=== PATIENT | male | born 1955 | race Caucasian/White ===

== ENCOUNTER 2018-05-25 11:40 | Inpatient (IN) | payer OTHER ==
--- NOTE | 2018-05-25 12:30 | ER ---
Nurse's Notes [facility] Name: Jeromy Brooks Age: 62 yrs Sex: Male : 1955 Arrival Date: 05/25/2018 Time: 11:45 Bed 24 Private MD: Mac Gross Diagnosis: Acute embolism and thrombosis of deep veins of lower extremity;Pulmonary embolism Presentation: 05/25 11:54 Presenting complaint: Patient states: Sent by Dr Muñiz for blood clot to right lower aj leg. Transition of care: patient was not received from another setting of care. Onset of symptoms was February 2018. Risk Assessment: Do you want to hurt yourself or someone else? Patient reports no desire to harm self or others. Initial Sepsis Screen: Does the patient meet any 2 criteria? No. Patient's initial sepsis screen is negative. Does the patient have a suspected source of infection? No. Patient's initial sepsis screen is negative. Care prior to arrival: None. 11:54 Method Of Arrival: Ambulatory aj 11:54 Acuity: SEUN 3 aj Triage Assessment: 11:56 General: Appears in no apparent distress. comfortable, Behavior is calm, cooperative, aj appropriate for age. Pain: Complains of pain in right zuniga and anterior aspect of right ankle. Neuro: Level of Consciousness is awake, alert, obeys commands, Oriented to person, place, time, situation, Appropriate for age. Respiratory: Airway is patent Respiratory effort is even, unlabored, Respiratory pattern is regular, symmetrical. Derm: Skin is intact, is healthy with good turgor, Skin is pink, warm \T\ dry. normal. Musculoskeletal: Swelling present in right calf, right Achilles, right zuniga and anterior aspect of right ankle Reports pain in right calf, right Achilles, right zuniga and anterior aspect of right ankle. Historical: - Allergies: 11:56 Sulfa (Sulfonamide Antibiotics); aj 11:56 PENICILLINS; aj 12:01 Albutein 5 %; hb - Home Meds: 12:01 ProAir HFA 90 mcg/actuation inhalation HFAA 2 puffs as needed [Active]; Zyrtec 10 mg hb oral cap [Active]; Zestoretic 20-25 mg oral tab 1 tab once daily for Hypertension [Active]; - PMHx: 12:01 Hypertension; Asthma; Anxiety; CAD; Arthritis; hb - Immunization history:: Adult Immunizations up to date. - Social history:: Smoking status: Patient/guardian denies using tobacco. - Ebola Screening: : Patient negative for fever greater than or equal to 101.5 degrees Fahrenheit, and additional compatible Ebola Virus Disease symptoms Patient denies exposure to infectious person Patient denies travel to an Ebola-affected area in the 21 days before illness onset No symptoms or risks identified at this time. - Family history:: not pertinent. Screenin:15 Abuse screen: Denies threats or abuse. Denies injuries from another. Nutritional hb screening: No deficits noted. Tuberculosis screening: No symptoms or risk factors identified. Fall Risk None identified. Assessment: 12:10 General: Appears in no apparent distress. Behavior is calm, cooperative. Pain: Denies hb pain. Neuro: Level of Consciousness is awake, alert, obeys commands, Oriented to person, place, time, situation. Cardiovascular: Capillary refill < 3 seconds Patient's skin is warm and dry. Respiratory: Airway is patent Trachea midline Respiratory effort is even, unlabored, Respiratory pattern is regular, symmetrical, Breath sounds are clear bilaterally. GI: No signs and/or symptoms were reported involving the gastrointestinal system. : No signs and/or symptoms were reported regarding the genitourinary system. EENT: No signs and/or symptoms were reported regarding the EENT system. Derm: No signs and/or symptoms reported regarding the dermatologic system. Skin is intact, is healthy with good turgor. Musculoskeletal: mild selling and redness noted to RLE. 13:00 Reassessment: Patient appears in no apparent distress at this time. No changes from hb previously documented assessment. Patient and/or family updated on plan of care and expected duration. Pain level reassessed. Patient is alert, oriented x 3, equal unlabored respirations, skin warm/dry/pink. 14:00 Reassessment: Patient appears in no apparent distress at this time. No changes from hb previously documented assessment. Patient and/or family updated on plan of care and expected duration. Pain level reassessed. Patient is alert, oriented x 3, equal unlabored respirations, skin warm/dry/pink. 14:50 Reassessment: US tech at bedside for ECHO. hb 14:54 Reassessment: Patient appears in no apparent distress at this time. No changes from hb previously documented assessment. Patient and/or family updated on plan of care and expected duration. Pain level reassessed. Patient is alert, oriented x 3, equal unlabored respirations, skin warm/dry/pink. 15:46 Reassessment: Attempted to call report to floor, receiving nurse unavailable at this hb time. 16:00 Reassessment: Patient appears in no apparent distress at this time. Patient and/or hb family updated on plan of care and expected duration. Pain level reassessed. Patient is alert, oriented x 3, equal unlabored respirations, skin warm/dry/pink. 16:15 Reassessment: Attempted to call report to floor, receiving nurse is not available. CN hb notified. Vital Signs: 11:56 BP 138 / 101; Pulse 77; Resp 16; Temp 98.3; Pulse Ox 98% on R/A; Weight 78.02 kg; aj Height 5 ft. 5 in. (165.10 cm); 12:45 BP 134 / 89; Pulse 66; Resp 16; Pulse Ox 100% on R/A; Pain 0/10; hb 14:00 BP 138 / 88; Pulse 63; Resp 15; Pulse Ox 100% on R/A; Pain 0/10; hb 14:54 BP 133 / 77; Pulse 69; Resp 15; Pulse Ox 100% on R/A; Pain 0/10; hb 16:00 BP 134 / 92; Pulse 67; Resp 15; Temp 98.3; Pulse Ox 100% on R/A; Pain 0/10; hb 16:50 BP 131 / 94; Pulse 68; Resp 15; Pulse Ox 100% on R/A; Pain 8/10; hb 11:56 Body Mass Index 28.62 (78.02 kg, 165.10 cm) ED Course: 11:45 Patient arrived in ED. mr 11:46 Mac Gross DO is Private Physician. mr 11:53 Snehal Tucker, RN is Primary Nurse. hb 11:55 Triage completed. aj 11:56 Arm band placed on left wrist. Patient placed in an exam room. aj 11:58 Myles Burton MD is Attending Physician. nicole 12:10 Patient has correct armband on for positive identification. Placed in gown. Bed in low hb position. Call light in reach. Side rails up X 1. 12:29 Shun Short MD is Hospitalizing Provider. nicole 12:35 X-ray completed. Portable x-ray completed in exam room. Patient tolerated procedure jb2 well. 12:38 XRAY Chest (1 view) In Process Unspecified. EDMS 12:39 Patient taken to ultrasound. aa4 12:48 US Extremity Venous Unilateral Ltd In Process Unspecified. EDMS 12:49 Patient moved back from ultrasound. hr 13:01 EKG done, by lawn care technician. reviewed by Myles Burton MD. at1 13:25 CT completed. Patient tolerated procedure well. Patient moved to CT via stretcher. Patient moved back from CT. 13:29 Hospitalizing Provider role handed off by Shun Short MD bd 13:29 Bessy Mcdermott MD is Hospitalizing Provider. bd 16:45 No provider procedures requiring assistance completed. Patient admitted, IV remains in hb place. Administered Medications: 12:50 Drug: NS 0.9% 1000 ml Route: IV; Rate: 125 ml/hr; Site: left antecubital; hb 12:50 Drug: Lovenox 1 mg/kg Route: Sub-Q; Site: abdomen; hb 13:29 Follow up: Response: No adverse reaction hb 12:50 Drug: Pepcid 20 mg Route: IVP; Site: left antecubital; hb 13:30 Follow up: Response: No adverse reaction hb Outcome: 12:30 Decision to Hospitalize by Provider. nicole 16:15 Condition: stable hb 16:15 Instructed on the need for admit, Demonstrated understanding of instructions. 16:48 Discharge instructions given to patient. hb 16:49 Admitted to Tele accompanied by nurse, via stretcher, room 431, with chart, Report hb called to JAYRO Pelayo RN 17:07 Patient left the ED. hb Signatures: Dispatcher [employer] EDMS Gela Hilliard Amanda, RN RN Myles Lee MD MD cha Rivera, Maria mr Murillo Black jb2 Leyla Hilton hr Shaniqua Amado aa4 Shaniqua murillo, microphone operator EKG Tat1 Jocelin Salazar Heather, BLAYNE RN kiersten Corrections: (The following items were deleted from the chart) 12:01 11:56 Allergies: Albuterol; donald burch 05/26 07:22 05/25 16:15 Admitted to Tele accompanied by nurse, via stretcher, room 431, with chart, hb Report called to JAYRO Pelayo, BLAYNE hb
--- NOTE | 2018-05-25 12:30 | EDPHYS ---
Physician Documentation [facility] Name: Jeromy Brooks Age: 62 yrs Sex: Male : 1955 Arrival Date: 05/25/2018 Time: 11:45 Bed 24 Private MD: Mac Gross ED Physician Myles Burton HPI: 05/25 12:24 This 62 yrs old Male presents to ER via Ambulatory with complaints of Blood nicole Clot. 12:24 The patient presents with decreased range of motion, pain, swelling, tenderness. The nicole complaints affect the lateral aspect of right calf, right calf, medial aspect of right calf and right zuniga. Context: The problem was sustained. Onset: The symptoms/episode began/occurred 3 day(s) ago. Modifying factors: The symptoms are alleviated by nothing. the symptoms are aggravated by movement. Associated signs and symptoms: The patient has no apparent associated signs or symptoms. Treatment prior to arrival includes: no previous treatment. Severity of symptoms: At their worst the symptoms were moderate, in the emergency department the symptoms are unchanged. Historical: - Allergies: 11:56 Sulfa (Sulfonamide Antibiotics); aj 11:56 PENICILLINS; aj 12:01 Albutein 5 %; hb - Home Meds: 12:01 ProAir HFA 90 mcg/actuation inhalation HFAA 2 puffs as needed [Active]; Zyrtec 10 mg hb oral cap [Active]; Zestoretic 20-25 mg oral tab 1 tab once daily for Hypertension [Active]; - PMHx: 12:01 Hypertension; Asthma; Anxiety; CAD; Arthritis; hb - Immunization history:: Adult Immunizations up to date. - Social history:: Smoking status: Patient/guardian denies using tobacco. - Ebola Screening: : Patient negative for fever greater than or equal to 101.5 degrees Fahrenheit, and additional compatible Ebola Virus Disease symptoms Patient denies exposure to infectious person Patient denies travel to an Ebola-affected area in the 21 days before illness onset No symptoms or risks identified at this time. - Family history:: not pertinent. ROS: 12:24 Constitutional: Negative for fever, chills, and weight loss, Eyes: Negative for injury, nicole pain, redness, and discharge, ENT: Negative for injury, pain, and discharge, Neck: Negative for injury, pain, and swelling, Cardiovascular: Negative for chest pain, palpitations, and edema, Respiratory: Negative for shortness of breath, cough, wheezing, and pleuritic chest pain, Abdomen/GI: Negative for abdominal pain, nausea, vomiting, diarrhea, and constipation, Back: Negative for injury and pain, : Negative for injury, bleeding, discharge, and swelling, Skin: Negative for injury, rash, and discoloration, Neuro: Negative for headache, weakness, numbness, tingling, and seizure, Psych: Negative for depression, anxiety, suicide ideation, homicidal ideation, and hallucinations, Allergy/Immunology: Negative for hives, rash, and allergies, Endocrine: Negative for neck swelling, polydipsia, polyuria, polyphagia, and marked weight changes, Hematologic/Lymphatic: Negative for swollen nodes, abnormal bleeding, and unusual bruising. 12:24 MS/extremity: Positive for decreased range of motion, pain, tenderness. Exam: 12:24 Constitutional: This is a well developed, well nourished patient who is awake, alert, nicole and in no acute distress. Head/Face: Normocephalic, atraumatic. Eyes: Pupils equal round and reactive to light, extra-ocular motions intact. Lids and lashes normal. Conjunctiva and sclera are non-icteric and not injected. Cornea within normal limits. Periorbital areas with no swelling, redness, or edema. ENT: Nares patent. No nasal discharge, no septal abnormalities noted. Tympanic membranes are normal and external auditory canals are clear. Oropharynx with no redness, swelling, or masses, exudates, or evidence of obstruction, uvula midline. Mucous membranes moist. Neck: Trachea midline, no thyromegaly or masses palpated, and no cervical lymphadenopathy. Supple, full range of motion without nuchal rigidity, or vertebral point tenderness. No Meningismus. Chest/axilla: Normal chest wall appearance and motion. Nontender with no deformity. No lesions are appreciated. Cardiovascular: Regular rate and rhythm with a normal S1 and S2. No gallops, murmurs, or rubs. Normal PMI, no JVD. No pulse deficits. Respiratory: Lungs have equal breath sounds bilaterally, clear to auscultation and percussion. No rales, rhonchi or wheezes noted. No increased work of breathing, no retractions or nasal flaring. Back: No spinal tenderness. No costovertebral tenderness. Full range of motion. Male : Normal genitalia with no discharge or lesions. Skin: Warm, dry with normal turgor. Normal color with no rashes, no lesions, and no evidence of cellulitis. MS/ Extremity: Pulses equal, no cyanosis. Neurovascular intact. Full, normal range of motion. Neuro: Awake and alert, GCS 15, oriented to person, place, time, and situation. Cranial nerves II-XII grossly intact. Motor strength 5/5 in all extremities. Sensory grossly intact. Cerebellar exam normal. Normal gait. Psych: Awake, alert, with orientation to person, place and time. Behavior, mood, and affect are within normal limits. 12:24 Abdomen/GI: Inspection: Bowel sounds: normal, Palpation: nontender, Liver: no appreciated palpable abnormalities, Hernia: not appreciated. Vital Signs: 11:56 BP 138 / 101; Pulse 77; Resp 16; Temp 98.3; Pulse Ox 98% on R/A; Weight 78.02 kg; aj Height 5 ft. 5 in. (165.10 cm); 12:45 BP 134 / 89; Pulse 66; Resp 16; Pulse Ox 100% on R/A; Pain 0/10; hb 14:00 BP 138 / 88; Pulse 63; Resp 15; Pulse Ox 100% on R/A; Pain 0/10; hb 14:54 BP 133 / 77; Pulse 69; Resp 15; Pulse Ox 100% on R/A; Pain 0/10; hb 16:00 BP 134 / 92; Pulse 67; Resp 15; Temp 98.3; Pulse Ox 100% on R/A; Pain 0/10; hb 16:50 BP 131 / 94; Pulse 68; Resp 15; Pulse Ox 100% on R/A; Pain 8/10; hb 11:56 Body Mass Index 28.62 (78.02 kg, 165.10 cm) MDM: 11:58 Patient medically screened. [facility] 12:27 Data reviewed: vital signs, nurses notes, lab test result(s), EKG, radiologic studies, [facility] CT scan, doppler, plain films. 05/25 12:24 Order name: Basic Metabolic Panel; Complete Time: 13:15 [facility] 05/25 12:24 Order name: CBC with Diff; Complete Time: 13:15 [facility] 05/25 12:24 Order name: Ckmb; Complete Time: 13:15 [facility] 05/25 12:24 Order name: CPK; Complete Time: 13:15 [facility] 05/25 12:24 Order name: LFT's; Complete Time: 13:15 [facility] 05/25 12:24 Order name: Magnesium; Complete Time: 13:15 [facility] 05/25 12:24 Order name: NT PRO-BNP; Complete Time: 13:15 [facility] 05/25 12:24 Order name: PT-INR; Complete Time: 13:15 [facility] 05/25 12:24 Order name: Ptt, Activated; Complete Time: 13:15 [facility] 05/25 12:24 Order name: Troponin (emerg Dept Use Only); Complete Time: 13:15 [facility] 05/25 12:24 Order name: XRAY Chest (1 view); Complete Time: 13:15 [facility] 05/25 12:24 Order name: US Extremity Venous Unilateral Ltd [facility] 05/25 13:10 Order name: Urine Dipstick--Ancillary (enter results) 05/25 13:13 Order name: Urine Dipstick-Ancillary; Complete Time: 13:15 [facility] 05/25 12:24 Order name: EKG; Complete Time: 12:24 [facility] 05/25 12:24 Order name: Cardiac monitoring; Complete Time: 12:27 [facility] 05/25 12:24 Order name: EKG - Nurse/Tech; Complete Time: 12: [facility] 05/25 12:24 Order name: IV Saline Lock; Complete Time: 12: [facility] 05/25 12:24 Order name: Labs collected and sent; Complete Time: 12:27 [facility] 05/25 12:24 Order name: O2 Per Protocol; Complete Time: 12:27 [facility] 05/25 12:24 Order name: O2 Sat Monitoring; Complete Time: 12: [facility] 05/25 12:24 Order name: Urine Dipstick-Ancillary (obtain specimen); Complete Time: 13:30 [facility] 05/25 12:24 Order name: CT Chest For PE Angio [facility] 05/25 14:00 Order name: CT; Complete Time: 14:10 [facility] 05/25 14:12 Order name: Echo w/ Doppler nicole Administered Medications: 12:50 Drug: NS 0.9% 1000 ml Route: IV; Rate: 125 ml/hr; Site: left antecubital; hb 12:50 Drug: Lovenox 1 mg/kg Route: Sub-Q; Site: abdomen; hb 13:29 Follow up: Response: No adverse reaction hb 12:50 Drug: Pepcid 20 mg Route: IVP; Site: left antecubital; hb 13:30 Follow up: Response: No adverse reaction hb Disposition: 05/25/18 12:30 Hospitalization ordered by Bessy Mcdermott for Inpatient Admission. Preliminary diagnosis are Acute embolism and thrombosis of deep veins of lower extremity, Pulmonary embolism. - Bed requested for Telemetry/MedSurg (Inpatient). - Status is Inpatient Admission. hb - Condition is Stable. - Problem is new. - Symptoms are unchanged. UTI on Admission? No Signatures: Dispatcher [employer] EDMS Gela Hilliard Amanda, RN RN aj Anderson, Corey, MD MD cha Baxter, Heather, RN RN hb Corrections: (The following items were deleted from the chart) 12:01 11:56 Allergies: Albuterol; aj hb 13:31 12:30 Hospitalization Ordered by Shun Short MD for Observation. Preliminary diagnosis bd is Acute embolism and thrombosis of deep veins of lower extremity. Bed requested for Telemetry/MedSurg (observation). Status is Observation. Condition is Stable. Problem is new. Symptoms are unchanged. UTI on Admission? No. nicole 14:11 13:31 05/25/2018 12:30 Hospitalization Ordered by Bessy Mcdermott MD for Observation. nicole Preliminary diagnosis is Acute embolism and thrombosis of deep veins of lower extremity. Bed requested for Telemetry/MedSurg (observation). Status is Observation. Condition is Stable. Problem is new. Symptoms are unchanged. UTI on Admission? No. bd 14:11 14:11 05/25/2018 12:30 Hospitalization Ordered by Bessy Mcdermott MD for Inpatient nicole Admission. Preliminary diagnosis is Acute embolism and thrombosis of deep veins of lower extremity. Bed requested for Telemetry/MedSurg (Inpatient). Status is Inpatient Admission. Condition is Stable. Problem is new. Symptoms are unchanged. UTI on Admission? No. nicole 15:29 14:11 05/25/2018 12:30 Hospitalization Ordered by Bessy Mcdermott MD for Inpatient bd Admission. Preliminary diagnosis is Acute embolism and thrombosis of deep veins of lower extremity; Pulmonary embolism. Bed requested for Telemetry/MedSurg (Inpatient). Status is Inpatient Admission. Condition is Stable. Problem is new. Symptoms are unchanged. UTI on Admission? No. nicole 17:07 15:29 05/25/2018 12:30 Hospitalization Ordered by Bessy Mcdermott MD for Inpatient hb Admission. Preliminary diagnosis is Acute embolism and thrombosis of deep veins of lower extremity; Pulmonary embolism. Bed requested for Telemetry/MedSurg (Inpatient). Status is Inpatient Admission. Condition is Stable. Problem is new. Symptoms are unchanged. UTI on Admission? No. bd
[2018-05-25] MEDS ORDERED: FAMOTIDINE 20 MG/2 ML VIAL IV ONE (12:35)
[2018-05-25] MEDS ORDERED: NA CHLORIDE 0.9% 1,000 ML ONE (12:35)
[2018-05-25] MEDS ORDERED: ENOXAPARIN 80 MG/0.8 ML SQ ONE (12:35)
[2018-05-25 12:39] LABS: Absolute Lymphocytes (CBC) 1.7 K/uL (0.7-4.9); Absolute Monocytes 0.9 K/uL (0.1-1.3); Absolute Neutrophil 4.9 K/uL (1.8-8.0); Basophils % 0.8 % (0-1.3); Eosinophils % 7.7 % (0-4.4); Hematocrit 39.4 % (39.6-49.0); Lymphocytes % 20.8 % (15.3-44.8); MCH 32.3 pg (27.0-35.0); MCV 92.1 fL (80-100); MPV 9.2 fL (7.6-11.3); Monocytes % 10.9 % (3.3-12.3); RBC Red Blood Cell Count 4.27 M/uL (4.33-5.43)
[2018-05-25 12:43] LABS: Protime INR 1.08
--- NOTE | 2018-05-25 12:51 | RAD REPORT ---
EXAM DESCRIPTION: RAD - Chest Single View - 05/25/2018 12:37 pm CLINICAL HISTORY: COUGH Chest pain. COMPARISON: No comparisons FINDINGS: Portable technique limits examination quality. The lungs are grossly clear. The heart is normal in size. No displaced fractures.Small to moderate hi atal hernia. IMPRESSION: No acute intrathoracic process suspected.
[2018-05-25 13:12] LABS: ALT/SGPT 28 U/L (12-78); AST/SGOT 17 U/L (15-37); Albumin 3.2 g/dL (3.4-5.0); Alkaline Phosphatase 68 U/L (45-117); BUN Blood Urea Nitrogen 13 mg/dL (7-18); Bicarbonate 31 mmol/L (21-32); Bilirubin Direct 0.1 mg/dL (0-0.2); Bilirubin Total 0.4 mg/dL (0.2-1.0); CKMB Creatine Kinase MB < 1.0 ng/mL (0.3-3.6); Creatine Phosphokinase 65 U/L (39-308); Glucose Level 81 mg/dL (74-106); Magnesium 2.1 mg/dL (1.8-2.4); NT PRO-BNP 50 pg/mL (<125); Potassium 3.5 mmol/L (3.5-5.1); Protein, Total 6.6 g/dL (6.4-8.2); Sodium Level 142 mmol/L (136-145)
[2018-05-25 13:13] LABS: Urine Blood NEGATIVE (NEG); Urine Glucose NEGATIVE (NEG); Urine Protein NEGATIVE (NEG); Urine Specific Gravity 1.015 (1.005-1.030)
--- NOTE | 2018-05-25 13:15 | RAD REPORT ---
EXAM DESCRIPTION: VAS - Extremity Venous Uni Ltd - 05/25/2018 12:48 pm COMPARISON: None. TECHNIQUE: Real-time sonographic evaluation of the right lower extremity deep venous system was perf ormed. FINDINGS: Normal compressibility, flow augmentation, phasic flow and spontaneous flow are identified in the right lower extremity common femoral, superficial femoral, popliteal and posterior tibial vei ns. No intraluminal filling defects seen. IMPRESSION: No DVT in the right lower extremity.
--- NOTE | 2018-05-25 13:59 | RAD REPORT ---
EXAM DESCRIPTION: CT - Chest For Pe Angio - 05/25/2018 1:38 pm CLINICAL HISTORY: DVT, possible pulmonary embolism, chest pain COMPARISON: None. TECHNIQUE: Dynamically enhanced 3 mm thick images of the chest were obtained during administration o f approximately 150mL Isovue 370 IV contrast. Coronal and oblique reconstruction images were generate d and reviewed. Exam utilizes a protocol to evaluate the pulmonary arterial tree. All CT scans are performed using dose optimization technique as appropriate and may include automated exposure control or mA/KV adjustment according to patient size. FINDINGS: Pulmonary emboli present in segmental and subsegmental branches of the right lower lobe. T here is questionable right upper lobe segmental branch embolus. No emboli in the lobar or main right pulmonary artery. No left-sided pulmonary embolism. The aorta as imaged shows no acute or suspicious finding. No pericardial thickening or effusion. No infiltrate or mass in the lung parenchyma. No pleural effusion or pleural thickening. No mediastinal or hilar suspicious masses. No chest wall masses or abnormal axillary lymphadenopathy. Patient has a large hiatal hernia with approximately 40% of the stomach intrathoracic. IMPRESSION: Right lower lobe segmental and subsegmental branch pulmonary emboli. There are questiona ble segmental branch emboli in the right upper lobe. Large hiatal hernia. No other significant or suspicious findings.
--- NOTE | 2018-05-25 14:45 | EKG ---
Test Date: 2018-05-25 Test Time: 12:57:56 [employer] Chief: GRISELDA MEASUREMENT RESULTS: Intervals: Rate: 65 MN: 158 QRSD: 98 QT: 404 QTc: 420 [place]: P: 62 MN: 158 QRS: 14 T: 34 INTERPRETIVE STATEMENTS: Normal sinus rhythm Normal ECG Compared to ECG 08/31/1998 08:54:00 Sinus tachycardia no longer present Electronically Signed On 05-25-18 14:44:55 CDT by Viet Burrell
--- NOTE | 2018-05-25 17:04 | ECHO ---
HEIGHT: ft in WEIGHT: lb oz DATE OF STUDY: 05/25/[address]: Myles Burton MD 2-DIMENSIONAL: YES M.MODE: YES DOPPLER: YES COLOR FLOW: YES TDS: PORTABLE: DEFINITY: BUBBLE STUDY: DIAGNOSIS: PULMONARY EMBOLISM/ DEEP VEIN THOMBOSIS CARDIAC HISTORY: CATHERIZATION: YES SURGERY: NO PROSTHETIC VALVE: NO PACEMAKER: NO MEASUREMENTS (cm) DIASTOLIC (NORMALS) SYSTOLIC (NORMALS) IVSd 1.0 (0.6-1.2) LA Diam [*] (1.9-4.0) LVEF 68% LVIDd 4.5 (3.5-5.7) LVIDs 2.8 (2.0-3.5) %FS 37% LVPWd 1.1 (0.6-1.2) Ao Diam 2.6 (2.0-3.7) 2 DIMENSIONAL ASSESSMENT: RIGHT ATRIUM: NORMAL LEFT ATRIUM: NORMAL RIGHT VENTRICLE: NORMAL LEFT VENTRICLE: NORMAL TRICUSPID VALVE: NORMAL MITRAL VALVE: NORMAL PULMONIC VALVE: NORMAL AORTIC VALVE: NORMAL PERICARDIAL EFFUSION: NONE AORTIC ROOT: NORMAL LEFT VENTRICULAR WALL MOTION: DOPPLER/COLOR FLOW: PHYSIOLOGIC TRICUSPID REGURGITATION. NORMAL RIGHT VENTRICULAR SYSTOLIC PRESSURE. COMMENTS: NORMAL TWO DIMENSIONAL ECHOCARDIOGRAM WITH DOPPLER. TECHNOLOGIST: MUSA MARCANO
--- NOTE | 2018-05-25 17:44 | P.HP ---
Certification for Inpatient Patient admitted to: Inpatient With expected LOS: >2 Midnights Patient will require the following post-hospital care: None Practitioner: I am a practitioner with admitting privileges, knowledge of patient current condition, hospital course, and medical plan of care. Services: Services provided to patient in accordance with Admission requirements found in Title 42 Section 412.3 of the Code of Federal Regulations Patient History Date of Service: 05/25/18 Primary Care Provider: Dr Gross Reason for admission: DVT History of Present Illness: 62-year-old male with significant past medical history of hypertension, anxiety , CAD with angioplasty, who presented to the ED complaining of having some right -sided lower extremity swelling tenderness and pain. Patient actually went to the primary care doctor who sent him over to the ER to get it checked out. 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 Patient denies having any shortness of breath fever chills nausea vomiting or any other associated symptoms at this time. In the ER patient was found to have extensive right-sided lower extremity DVT and CT was positive for pulmonary embolism as well. Patient was thus admitted to the hospital for further workup and treatment. Allergies albumin human [From Albutein 5 %] Allergy (Verified 05/25/18 14:53) Hives/Rash Penicillins Allergy (Verified 05/25/18 14:53) Hives/Rash Sulfa (Sulfonamide Antibiotics) Allergy (Verified 05/25/18 14:53) Hives/Rash Home medications list reviewed: Yes - Past Medical/Surgical History Has patient received pneumonia vaccine in the past: No Diabetic: No -: HTN -: Anxiety -: CAD Past Surgical History: Reviewed- Non-Contributory - Family History Family History: Reviewed- Non-Contributory - Social History Smoking Status: Never smoker Smoking therapy provided: No Alcohol use: No CD- Drugs: No Review of Systems General: As per HPI Physical Examination - Vital Signs Temperature: 98.3 F Blood Pressure: 131/94 Pulse: 68 Respirations: 15 - Physical Exam General: Alert, In no apparent distress, Oriented x3 HEENT: Atraumatic Neck: Supple, 2+ carotid pulse no bruit, No LAD, Without JVD or thyroid abnormality Respiratory: Clear to auscultation bilaterally, Normal air movement Cardiovascular: Regular rate/rhythm, Normal S1 S2 Gastrointestinal: Normal bowel sounds, No tenderness Musculoskeletal: Erythema (Right LE), Tenderness, Warmth Integumentary: No rashes Neurological: Normal speech, Normal strength at 5/5 x4 extr, Normal tone Lymphatics: No axilla or inguinal lymphadenopathy - Studies Laboratory Data (last 24 hrs) 05/25/18 12:20: PT 12.8 H, INR 1.08, APTT 29.9 05/25/18 12:20: WBC 8.2, Hgb 13.8, Hct 39.4 L, Plt Count 191 05/25/18 12:20: Sodium 142, Potassium 3.5, BUN 13, Creatinine 1.40 H, Glucose 81 , Magnesium 2.1, Total Bilirubin 0.4, AST 17, ALT 28, Alkaline Phosphatase 68 Assessment and Plan - Problems (Diagnosis) (1) DVT (deep venous thrombosis) Current Visit: Yes Status: Acute Plan: Patient with acute findings of DVT on the right leg. Noted erythema swelling and tenderness to the area as well. -patient will be started on Eliquis 10 mg b.i.d. -concern for cellulites as well. Will place patient on IV clindamycin Qualifiers: DVT location: lower extremity Affected thrombotic vein of extremity: other lower extremity vein Chronicity: acute Laterality: right Qualified Code(s) : I82.491 - Acute embolism and thrombosis of other specified deep vein of right lower extremity (2) Pulmonary embolism Current Visit: Yes Status: Acute Plan: Right-sided lower lobe PE noted as well. -patient will be on Eliquis 10 mg b.i.d. -echo within normal limits -will monitor tonight Dc in 24-48 hr if no complications noted Qualifiers: Pulmonary embolism type: other Chronicity: acute Acute cor pulmonale presence: without acute cor pulmonale Qualified Code(s): I26.99 - Other pulmonary embolism without acute cor pulmonale (3) HTN (hypertension) Current Visit: Yes Status: Chronic Plan: Restarted home medication Qualifiers: Hypertension type: essential hypertension Qualified Code(s): I10 - Essential (primary) hypertension (4) Anxiety Current Visit: Yes Status: Chronic Plan: Restart Home medication (5) CAD (coronary artery disease) Current Visit: Yes Status: Chronic Plan: Restart Home medication Qualifiers: Coronary Disease-Associated Artery/Lesion type: [place] artery [place] vs. transplanted heart: [place] heart Associated angina: without angina Qualified Code(s): I25.10 - Atherosclerotic heart disease of [place] coronary artery without angina pectoris Discharge Plan: Home Plan to discharge in: 24 Hours - Advance Directives Does patient have a Living Will: No Does patient have a Durable POA for Healthcare: No - Code Status/Comfort Care Code Status Assessed: Yes Critical Care: No
[2018-05-25] MEDS ORDERED: ACETAMINOPHEN 500 MG TAB PO PRN (17:47)
[2018-05-25] MEDS ORDERED: ONDANSETRON 4 MG/2 ML VIAL IV PRN (17:47)
[2018-05-25] MEDS: ENOXAPARIN 40 MG/0.4 ML SQ SCH (18:30)
[2018-05-25] MEDS: NA CHLORIDE 0.9% 1,000 ML IV SCH (18:30)
[2018-05-25 18:50] VITALS: BMI 28.6
[2018-05-25 19:17] LABS: Urine Appearance CLEAR; Urine Bilirubin NEGATIVE (NEG); Urine Blood NEGATIVE (NEG); Urine Color YELLOW; Urine Glucose NEGATIVE (NEG); Urine Protein NEGATIVE (NEG); Urine Specific Gravity >=1.030 (1.005-1.030); Urine Urobilinogen 0.2 mg/dL (0.2-1.0)
[2018-05-25 19:34] LABS: Urine Microscopic Reflex NO UMIC
[2018-05-25] MEDS: APIXABAN 5 MG TABLET PO SCH (21:01)
[2018-05-26] MEDS: NA CHLORIDE 0.9% 1,000 ML IV SCH ×3 (03:47→17:10)
[2018-05-26 04:14] LABS: Absolute Lymphocytes (CBC) 1.7 K/uL (0.7-4.9); Absolute Monocytes 0.7 K/uL (0.1-1.3); Absolute Neutrophil 4.6 K/uL (1.8-8.0); Basophils % 0.7 % (0-1.3); Eosinophils % 7.8 % (0-4.4); Hematocrit 37.7 % (39.6-49.0); MCH 32.4 pg (27.0-35.0); MCV 91.9 fL (80-100); MPV 8.9 fL (7.6-11.3); Monocytes % 9.5 % (3.3-12.3)
[2018-05-26 04:27] LABS: Protime INR 1.44
[2018-05-26 04:30] LABS: Albumin 2.7 g/dL (3.4-5.0); Bilirubin Total 0.6 mg/dL (0.2-1.0); Protein, Total 5.7 g/dL (6.4-8.2)
[2018-05-26] MEDS: APIXABAN 5 MG TABLET PO SCH ×2 (08:46→20:35)
[2018-05-26] MEDS: ENOXAPARIN 40 MG/0.4 ML SQ SCH (08:46)
[2018-05-26] MEDS: CLINDAMYCIN INJ 300 MG in NA CHLORIDE 0.9% 50 ML IV SCH ×2 (12:44→17:11)
--- NOTE | 2018-05-26 14:30 | P.PN ---
Subjective Date of Service: 05/26/18 Primary Care Provider: Dr Gross Chief Complaint: DVT Patient seen and examined at bedside with RN. Chart reviewed. Case discussed with patient and family at bedside. Currently patient is doing well no complaints to offer overnight. Review of Systems General: As per HPI Physical Examination - Vital Signs Temperature: 98.5 F Blood Pressure: 121/72 Pulse: 76 Respirations: 17 Pulse Ox (%): 98 - Physical Exam General: Alert, In no apparent distress HEENT: Atraumatic, PERRLA, EOMI Neck: Supple, JVD not distended Respiratory: Clear to auscultation bilaterally, Normal air movement Cardiovascular: Regular rate/rhythm, Normal S1 S2 Gastrointestinal: Normal bowel sounds, No tenderness Musculoskeletal: Erythema, Tenderness, Warmth Integumentary: No rashes Neurological: Normal speech, Normal tone, Normal affect Lymphatics: No axilla or inguinal lymphadenopathy - Studies Medications List Reviewed: Yes Assessment & Plan - Problems (Diagnosis) (1) DVT (deep venous thrombosis) Onset Date: 05/26/18 Current Visit: Yes Status: Acute Plan: Patient with acute findings of DVT on the right leg. Noted erythema swelling and tenderness to the area as well. -patient will be started on Eliquis 10 mg b.i.d. -concern for cellulites as well. Will place patient on IV clindamycin Qualifiers: DVT location: lower extremity Affected thrombotic vein of extremity: other lower extremity vein Chronicity: acute Laterality: right Qualified Code(s) : I82.491 - Acute embolism and thrombosis of other specified deep vein of right lower extremity (2) Pulmonary embolism Onset Date: 05/26/18 Current Visit: Yes Status: Acute Plan: Right-sided lower lobe PE noted as well. -patient will be on Eliquis 10 mg b.i.d. -echo within normal limits -will monitor tonight Dc in 24-48 hr if no complications noted Qualifiers: Pulmonary embolism type: other Chronicity: acute Acute cor pulmonale presence: without acute cor pulmonale Qualified Code(s): I26.99 - Other pulmonary embolism without acute cor pulmonale (3) HTN (hypertension) Onset Date: 05/26/18 Current Visit: Yes Status: Chronic Plan: Restarted home medication Qualifiers: Hypertension type: essential hypertension Qualified Code(s): I10 - Essential (primary) hypertension (4) Anxiety Onset Date: 05/26/18 Current Visit: Yes Status: Chronic Plan: Restart Home medication (5) CAD (coronary artery disease) Onset Date: 05/26/18 Current Visit: Yes Status: Chronic Plan: Restart Home medication Qualifiers: Coronary Disease-Associated Artery/Lesion type: [place] artery [place] vs. transplanted heart: [place] heart Associated angina: without angina Qualified Code(s): I25.10 - Atherosclerotic heart disease of [place] coronary artery without angina pectoris Discharge Plan: Home Plan to discharge in: 48 Hours - Code Status/Comfort Care Code Status Assessed: Yes Critical Care: No
[2018-05-26 14:41] VITALS: O2SAT 96
[2018-05-27] MEDS: CLINDAMYCIN INJ 300 MG in NA CHLORIDE 0.9% 50 ML IV SCH ×5 (00:50→23:57)
[2018-05-27] MEDS: NA CHLORIDE 0.9% 1,000 ML IV SCH ×3 (00:50→18:17)
[2018-05-27 04:53] LABS: Absolute Lymphocytes (CBC) 1.6 K/uL (0.7-4.9); Absolute Monocytes 0.8 K/uL (0.1-1.3); Absolute Neutrophil 3.6 K/uL (1.8-8.0); Basophils % 0.6 % (0-1.3); Hematocrit 36.8 % (39.6-49.0); Lymphocytes % 24.6 % (15.3-44.8); MCV 91.4 fL (80-100); Monocytes % 11.3 % (3.3-12.3); RBC Red Blood Cell Count 4.03 M/uL (4.33-5.43)
[2018-05-27 04:56] LABS: Protime INR 1.44
[2018-05-27 05:01] LABS: Albumin 2.7 g/dL (3.4-5.0); Bilirubin Total 0.5 mg/dL (0.2-1.0); Phosphorus 2.5 mg/dL (2.5-4.9); Protein, Total 5.6 g/dL (6.4-8.2)
[2018-05-27] MEDS: ENOXAPARIN 40 MG/0.4 ML SQ SCH (08:46)
[2018-05-27] MEDS: LISINOPRIL 20 MG TAB PO SCH (08:46)
[2018-05-27] MEDS: hydroCHLOROthiazide 25 MG TAB PO SCH (08:47)
[2018-05-27] MEDS: APIXABAN 5 MG TABLET PO SCH ×2 (08:47→20:38)
[2018-05-27] MEDS ORDERED: HOME MED 1 EA UNK (Lisinopril/Hydrochlorothiazide [Zestoretic 20-25 Mg Tablet] 1 EACH) PO SCH (09:00)
--- NOTE | 2018-05-27 15:00 | P.PN ---
Subjective Date of Service: 05/27/18 Primary Care Provider: Dr Gross Chief Complaint: DVT Patient seen and examined at bedside with RN. Chart reviewed. Case discussed with patient and family at bedside. Currently c/o tenderness to touch to the Right LE and SOB. Review of Systems General: As per HPI Physical Examination - Vital Signs Temperature: 98.9 F Blood Pressure: 149/93 Pulse: 81 Respirations: 16 Pulse Ox (%): 98 - Physical Exam General: Alert, Oriented x3, Mild distress HEENT: Atraumatic Neck: Supple, JVD not distended Respiratory: Clear to auscultation bilaterally, Normal air movement Cardiovascular: Regular rate/rhythm, Normal S1 S2 Gastrointestinal: Normal bowel sounds, No tenderness Musculoskeletal: Erythema (No Improvement in the erythema from yesterday. Increase Swelling noted. Tender to touch as well. Right LE), Tenderness, Warmth Integumentary: Rash(es) Neurological: Normal speech, Normal tone, Normal affect Lymphatics: No axilla or inguinal lymphadenopathy - Studies Medications List Reviewed: Yes Assessment & Plan - Problems (Diagnosis) (1) DVT (deep venous thrombosis) Onset Date: 05/26/18 Current Visit: Yes Status: Acute Plan: Patient with acute findings of DVT on the right leg. Noted erythema swelling and tenderness to the area with no improvement today. -patient on Eliquis 10 mg b.i.d. -Cellulitis without any improvement today -Continue with IV clindamycin and [place] wrap and elevate leg. Qualifiers: DVT location: lower extremity Affected thrombotic vein of extremity: other lower extremity vein Chronicity: acute Laterality: right Qualified Code(s) : I82.491 - Acute embolism and thrombosis of other specified deep vein of right lower extremity (2) Pulmonary embolism Onset Date: 05/26/18 Current Visit: Yes Status: Acute Plan: Right-sided lower lobe PE noted as well. -patient will be on Eliquis 10 mg b.i.d. -echo within normal limits -will monitor tonight due to SOB overnight. Qualifiers: Pulmonary embolism type: other Chronicity: acute Acute cor pulmonale presence: without acute cor pulmonale Qualified Code(s): I26.99 - Other pulmonary embolism without acute cor pulmonale (3) HTN (hypertension) Onset Date: 05/26/18 Current Visit: Yes Status: Chronic Plan: Restarted home medication Qualifiers: Hypertension type: essential hypertension Qualified Code(s): I10 - Essential (primary) hypertension (4) Anxiety Onset Date: 05/26/18 Current Visit: Yes Status: Chronic Plan: Restart Home medication (5) CAD (coronary artery disease) Onset Date: 05/26/18 Current Visit: Yes Status: Chronic Plan: Restart Home medication Qualifiers: Coronary Disease-Associated Artery/Lesion type: [place] artery [place] vs. transplanted heart: [place] heart Associated angina: without angina Qualified Code(s): I25.10 - Atherosclerotic heart disease of [place] coronary artery without angina pectoris Discharge Plan: Home Plan to discharge in: 48 Hours - Code Status/Comfort Care Code Status Assessed: Yes Critical Care: No
[2018-05-28] MEDS: CLINDAMYCIN INJ 300 MG in NA CHLORIDE 0.9% 50 ML IV SCH (05:31)
[2018-05-28] MEDS: NA CHLORIDE 0.9% 1,000 ML IV SCH (05:31)
[2018-05-28 05:32] LABS: Absolute Lymphocytes (CBC) 1.3 K/uL (0.7-4.9); Absolute Monocytes 0.7 K/uL (0.1-1.3); Absolute Neutrophil 3.6 K/uL (1.8-8.0); Basophils % 0.5 % (0-1.3); Eosinophils % 9.8 % (0-4.4); Hematocrit 38.8 % (39.6-49.0); Lymphocytes % 21.3 % (15.3-44.8); MCH 32.4 pg (27.0-35.0); MCV 92.7 fL (80-100); MPV 9.5 fL (7.6-11.3); Monocytes % 10.6 % (3.3-12.3); RBC Red Blood Cell Count 4.19 M/uL (4.33-5.43)
[2018-05-28 05:41] LABS: Protime INR 1.41
[2018-05-28 05:57] LABS: Albumin 2.8 g/dL (3.4-5.0); Bilirubin Total 0.5 mg/dL (0.2-1.0); Magnesium 2.1 mg/dL (1.8-2.4); Potassium 4.4 mmol/L (3.5-5.1); Protein, Total 5.9 g/dL (6.4-8.2)
[2018-05-28] MEDS: APIXABAN 5 MG TABLET PO SCH (09:43)
[2018-05-28] MEDS: hydroCHLOROthiazide 25 MG TAB PO SCH (09:43)
[2018-05-28] MEDS: ENOXAPARIN 40 MG/0.4 ML SQ SCH (09:44)
[2018-05-28] MEDS: LISINOPRIL 20 MG TAB PO SCH (09:44)
[2018-05-28 12:25] VITALS: BP 137/81; TEMP 98.3
--- NOTE | 2018-05-28 16:13 | P.DS ---
Admission Date: 05/27/18 Discharge Date: 05/28/18 Primary Care Provider: Dr Gross Disposition: ROUTINE DISCHARGE Discharge Condition: GOOD Reason for Admission: DVT - Problems (1) DVT (deep venous thrombosis) Onset Date: 05/26/18 Status: Acute Qualifiers: DVT location: lower extremity Affected thrombotic vein of extremity: other lower extremity vein Chronicity: acute Laterality: right Qualified Code(s) : I82.491 - Acute embolism and thrombosis of other specified deep vein of right lower extremity (2) Pulmonary embolism Onset Date: 05/26/18 Status: Acute Qualifiers: Pulmonary embolism type: other Chronicity: acute Acute cor pulmonale presence: without acute cor pulmonale Qualified Code(s): I26.99 - Other pulmonary embolism without acute cor pulmonale (3) HTN (hypertension) Onset Date: 05/26/18 Status: Chronic Qualifiers: Hypertension type: essential hypertension Qualified Code(s): I10 - Essential (primary) hypertension (4) Anxiety Onset Date: 05/26/18 Status: Chronic (5) CAD (coronary artery disease) Onset Date: 05/26/18 Status: Chronic Qualifiers: Coronary Disease-Associated Artery/Lesion type: [place] artery [place] vs. transplanted heart: [place] heart Associated angina: without angina Qualified Code(s): I25.10 - Atherosclerotic heart disease of [place] coronary artery without angina pectoris Brief History of Present Illness: 62-year-old male with significant past medical history of hypertension, anxiety , CAD with angioplasty, who presented to the ED complaining of having some right -sided lower extremity swelling tenderness and pain. Patient actually went to the primary care doctor who sent him over to the ER to get it checked out. 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 Patient denies having any shortness of breath fever chills nausea vomiting or any other associated symptoms at this time. In the ER patient was found to have extensive right-sided lower extremity DVT and CT was positive for pulmonary embolism as well. Patient was thus admitted to the hospital for further workup and treatment. Hospital Course: Overall during the hospital stay patient remained stable Patient was initially admitted to the hospital for right leg DVT and right lung PE. Patient was started on Eliquis here in the hospital. Patient had marked improvement in his symptoms. Patient had an echocardiogram done here in the hospital to rule out right heart strain. Echocardiogram was within normal limits. Patient was also found to have right leg swelling and cellulitis. Patient was started on IV clindamycin. Patient had marked improvement in symptoms day 3 of hospitalization. Patient then was discharged home with prescription for Eliquis for DVT and PE and clindamycin for his cellulitis. Patient was given education on avoiding further along [place] until he has resolution of his DVT and PE. Lab work was also done for coagulation and is currently pending at this time. Primary care doctor will be following up with the results. After patient was discharged home he went to the pharmacy to bead picker his medication and stole the pharmacist that he has been having some truncal rash after he was discharged from home. Pharmacy address the concerned that patient might be having allergic reaction to Eliquis. This patient was switched over to Xarelto and was asked to follow up with his primary care provider is rash does not get better. Patient demonstrated understanding and stated that he will follow up with his primary care doctor. Vital Signs/Physical Exam: Temp Pulse Resp BP Pulse Ox 98.3 F 80 18 137/81 96 05/28/18 12:00 05/28/18 12:00 05/28/18 12:00 05/28/18 12:00 05/28/18 12:00 General: Alert, In no apparent distress HEENT: Atraumatic, PERRLA, EOMI Neck: Supple, JVD not distended Respiratory: Clear to auscultation bilaterally, Normal air movement Cardiovascular: Regular rate/rhythm, Normal S1 S2 Gastrointestinal: Normal bowel sounds, No tenderness Musculoskeletal: Erythema, Tenderness, Warmth, Other (improvement than before. ) Integumentary: No rashes Neurological: Normal speech, Normal tone, Normal affect Lymphatics: No axilla or inguinal lymphadenopathy Laboratory Data at Discharge: WBC 6.3 K/uL (4.3-10.9) 05/28/18 04:40 Hgb 13.6 g/dL (13.6-17.9) 05/28/18 04:40 Hct 38.8 % (39.6-49.0) L 05/28/18 04:40 Plt Count 158 K/uL (152-406) 05/28/18 04:40 PT 16.7 SECONDS (9.5-12.5) H 05/28/18 04:40 INR 1.41 05/28/18 04:40 APTT 25.9 SECONDS (24.3-36.9) 05/28/18 04:40 Sodium 145 mmol/L (136-145) 05/28/18 04:40 Potassium 4.4 mmol/L (3.5-5.1) 05/28/18 04:40 BUN 12 mg/dL (7-18) 05/28/18 04:40 Creatinine 1.10 mg/dL (0.55-1.3) 05/28/18 04:40 Glucose 94 mg/dL (74-106) 05/28/18 04:40 Phosphorus 3.0 mg/dL (2.5-4.9) 05/28/18 04:40 Magnesium 2.1 mg/dL (1.8-2.4) 05/28/18 04:40 Total Bilirubin 0.5 mg/dL (0.2-1.0) 05/28/18 04:40 AST 37 U/L (15-37) 05/28/18 04:40 ALT 37 U/L (12-78) 05/28/18 04:40 Alkaline Phosphatase 59 U/L (45-117) 05/28/18 04:40 Home Medications: Etodolac [Lodine Xl] 500 mg PO BID 05/26/18 Lisinopril/Hydrochlorothiazide [Zestoretic 20-25 mg Tablet] 1 each PO DAILY 11/12 Methylprednisolone [Medrol dosepack] 4 mg PO DAILY 05/26/18 Clindamycin HCl 300 mg PO Q6H 14 Days #56 capsule 05/28/18 Rivaroxaban [Xarelto] 10 mg PO DAILY #30 tablet 05/28/18 New Medications: Clindamycin HCl 300 mg PO Q6H 14 Days #56 capsule Rivaroxaban [Xarelto] 10 mg PO DAILY #30 tablet Patient Discharge Instructions: Please f.u with PCP in 1 to 2 days post discharge. New medication. Eliquis 10mg twice daily for 4 more days. Eliquis 5mg Twice Daily for rest of the time. Bactrim DS Twice daily for 10 days Diet: Regular Activity: Ad shawn Followup: Mac Gross DO [Primary Care Provider] - 1-2 Days (call to schedule an appointment)
[2018-05-29 05:18] LABS: Anti-Cardiolipin IgA Antibody <11 APL (<=11)
== END 2018-05-28 13:10 | disposition home or self-care (01) | DRG 299 ==
LOC: ER 11:40 → ERHOLD 12:35 → 4TH 16:33 → OBSVTOIN 05-27 12:35
PROVIDERS: ADMIT Family Medicine; ATTEND Family Medicine
DX: I82.491 Acute embolism and thrombosis of other specified deep vein of right lower extremity (principal); I26.99 Other pulmonary embolism without acute cor pulmonale; L03.115 Cellulitis of right lower limb; I10 Essential (primary) hypertension; F41.9 Anxiety disorder, unspecified; I25.10 Atherosclerotic heart disease of native coronary artery without angina pectoris; L27.0 Generalized skin eruption due to drugs and medicaments taken internally; T45.515A Adverse effect of anticoagulants, initial encounter; Y92.230 Patient room in hospital as the place of occurrence of the external cause; Z98.61 Coronary angioplasty status; Z88.0 Allergy status to penicillin; Z88.2 Allergy status to sulfonamides; Z88.8 Allergy status to other drugs, medicaments and biological substances
CPT/HCPCS: 36415; 71045; 71275; 80048; 80053; 80076; 81003; 81241; 82550; 82553; 83735; 83880; 84100; 84484; 85025; 85610; 85730; 86147; 86850; 93005; 93306; 93971; 96372; 96374; 99285; G0378; J1650; J7030; Q9967

== ENCOUNTER 2019-11-17 15:26 | Emergency (ER) | payer OTHER ==
--- NOTE | 2019-11-17 15:49 | RAD REPORT ---
EXAM DESCRIPTION: CT - Ct Stroke Brain Wo Cont - 11/17/2019 3:41 pm CLINICAL HISTORY: difficulty speaking Headache, drowsiness, CVA symptomology COMPARISON: No comparisons TECHNIQUE: All CT scans are performed using dose optimization technique as appropriate and may inclu de automated exposure control or mA/KV adjustment according to patient size. FINDINGS: No intracranial hemorrhage, hydrocephalus or extra-axial fluid collection.No areas of brai n edema or evidence of midline shift. Moderate mucoperiosteal thickening is seen in the left maxillary antrum and left ethmoid air cells. P aranasal sinuses and mastoids are otherwise clear. The calvarium is intact. IMPRESSION: No acute intracranial abnormality. The findings were discussed with Dr. Elmore in the emergency room On 11/17/2019 at 3:45 a.m. by telep dorian.
--- NOTE | 2019-11-17 16:14 | RAD REPORT ---
EXAM DESCRIPTION: RAD - Chest Single View - 11/17/2019 4:02 pm CLINICAL HISTORY: difficulty speaking Chest pain. COMPARISON: Chest Pa And Lat (2 Views) dated 11/11/2018; Chest Pa And Lat (2 Views) dated 10/01/2018; Chest Single View dated 05/25/2018 FINDINGS: Portable technique limits examination quality. The lungs are grossly clear. The heart is normal in size. No displaced fractures.Small hiatal hernia. IMPRESSION: No acute intrathoracic process suspected.
[2019-11-17 16:16] LABS: Absolute Lymphocytes (CBC) 2.7 K/uL (0.7-4.9); Basophils % 0.9 % (0-1.3); Hematocrit 49.1 % (39.6-49.0); Lymphocytes % 23.3 % (15.3-44.8); MPV 8.9 fL (7.6-11.3); RBC Red Blood Cell Count 5.29 M/uL (4.33-5.43)
[2019-11-17 16:17] LABS: BUN Blood Urea Nitrogen 16 mg/dL (7-18); Bicarbonate 31 mmol/L (21-32); Glucose Level 85 mg/dL (74-106); Potassium 3.7 mmol/L (3.5-5.1); Sodium Level 143 mmol/L (136-145)
[2019-11-17 16:19] LABS: Protime INR 1.19
[2019-11-17 16:23] LABS: Troponin (Emerg Dept Use Only) < 0.02 ng/mL (0.0-0.045)
[2019-11-17] MEDS ORDERED: HYDROCODONE/CHLORPHEN 5 ML/OSYR ONE (16:44)
[2019-11-17] MEDS ORDERED: LORazepam 2 MG/ML VIAL ONE (16:44)
--- NOTE | 2019-11-17 17:30 | RAD REPORT ---
EXAM DESCRIPTION: MRI - Brain Wo Cont - 11/17/2019 5:04 pm CLINICAL HISTORY: trouble speaking Headache, drowsiness, possible CVA symptomology COMPARISON: Ct Stroke Brain Wo Cont dated 11/17/2019 TECHNIQUE: Multi-sequence, multiplanar MR imaging of the brain was performed without contrast. FINDINGS: Motion artifact is present, mildly limiting the quality of the study. No intracranial hemorrhage, hydrocephalus or extra-axial fluid collections.Mild T2 and FLAIR hyperint ensity is seen in the periventricular region compatible with mild chronic microvascular ischemic vital ges. No edema or shift of midline structures. No findings to suspect brain mass. DWI is negative for acute CVA. Midline structures are normally formed. Chronic opacification left maxillary antrum. IMPRESSION: Although motion limited, no acute CVA is suspected.
--- NOTE | 2019-11-17 18:15 | EDPHYS ---
Physician Documentation [facility] Name: Jeromy Brooks Age: 64 yrs Sex: Male : 1955 Arrival Date: 11/17/2019 Time: 15:28 Bed 14 Private MD: ED Physician Wily Elmore HPI: 11/17 15:36 This 64 yrs old Male presents to ER via Unassigned with complaints of Cough, la1 Anxiety, Trouble Talking. 15:36 The patient's problem is reported as dysphasia, incoherent speech, expressive aphasia. la1 Onset: The symptoms/episode began/occurred at 13:30. Duration: The episodes are intermittent. Context: the episode(s) was witnessed, by EMS personnel. The symptoms are alleviated by nothing. The symptoms are aggravated by nothing. Associated signs and symptoms: Pertinent positives: Pertinent negatives: lightheadedness, numbness, seizure, weakness. Severity of symptoms: At their worst the symptoms were moderate. pt was able to tell EMS that at around 1330 he began having anxiety, coughing fits, and trouble forming words, upon arrival to ED pt speech is intermittently clear followed by episodes of stuttering and incoherent speech. Pt with equal strong extension forester, finger to nose normal, motor function intact in all extremities. Code stroke called due to new onset of difficulty speaking. . Historical: - Allergies: 15:57 Albutein 5 %; ss 15:57 PENICILLINS; ss 15:57 Sulfa (Sulfonamide Antibiotics); ss - Home Meds: 15:57 Lisinopril [Active]; Robitussin DM [Active]; Prednisone Oral [Active]; Xarelto oral ss oral [Active]; carvedilol oral oral [Active]; - PMHx: 15:57 Anxiety; Arthritis; Asthma; CAD; Hypertension; Pulmonary embolism; ss - Immunization history:: Adult Immunizations unknown. - Ebola Screening: : Patient denies exposure to infectious person Patient denies travel to an Ebola-affected area in the 21 days before illness onset. - Social history:: Smoking status: Patient denies any tobacco usage or history of. ROS: 15:28 Constitutional: Negative for fever, chills, and weight loss, Eyes: Negative for injury, la1 pain, redness, and discharge, ENT: Negative for injury, pain, and discharge, Neck: Negative for injury, pain, and swelling, Cardiovascular: Negative for chest pain, palpitations, and edema. 15:28 Abdomen/GI: Negative for abdominal pain, nausea, vomiting, diarrhea, and constipation, Back: Negative for injury and pain, MS/Extremity: Negative for injury and deformity, Skin: Negative for injury, rash, and discoloration. 15:28 Psych: Negative for depression, anxiety, suicide ideation, homicidal ideation, and hallucinations. 15:28 Respiratory: Positive for cough. 15:28 Neuro: Positive for speech changes, Stuttering during coughing fit. Exam: 15:30 Constitutional: This is a well developed, well nourished patient who is awake and la1 alert Head/Face: Normocephalic, atraumatic. Eyes: Pupils equal round and reactive to light, extra-ocular motions intact. Lids and lashes normal. Conjunctiva and sclera are non-icteric and not injected. Cornea within normal limits. Periorbital areas with no swelling, redness, or edema. ENT: Nares patent. No nasal discharge, no septal abnormalities noted. Tympanic membranes are normal and external auditory canals are clear. Oropharynx with no redness, swelling, or masses, exudates, or evidence of obstruction, uvula midline. Mucous membranes moist. Chest/axilla: Normal chest wall appearance and motion. Nontender with no deformity. No lesions are appreciated. Cardiovascular: Regular rate and rhythm with a normal S1 and S2. No gallops, murmurs, or rubs. Normal PMI, no JVD. No pulse deficits. Respiratory: Lungs have equal breath sounds bilaterally, clear to auscultation No rales, rhonchi or wheezes noted. No increased work of breathing, no retractions or nasal flaring. Abdomen/GI: Soft, non-tender, with normal bowel sounds. No distension or tympany. No guarding or rebound. No evidence of tenderness throughout. Skin: Warm, dry with normal turgor. Normal color with no rashes, no lesions, and no evidence of cellulitis. MS/ Extremity: Pulses equal, no cyanosis. Neurovascular intact. Full, normal range of motion. 15:30 Neuro: Orientation: is normal, to person, place, time \T\ situation. Mentation: is normal, Memory: is normal, Cranial nerves: CN II- XII are normal as tested, visual angeles are intact. extraocular movements are intact, Speech is clear and appropriate with episodes of stuttering and frustrations with coughing fits. . Cerebellar function: is grossly normal. 18:12 Radiologist reports: no acute findings la1 Vital Signs: 15:57 BP 132 / 91; Pulse 86; Resp 20; Pulse Ox 97% on R/A; ss 16:00 Temp 98.2(TE); ss 18:00 BP 134 / 82; Pulse 84; Resp 18; Pulse Ox 100% on R/A; Pain 0/10; ss NIH Stroke Scale Scores: 15:30 NIHSS Score: 1 la1 15:50 NIHSS Score: 2 ss 15:50 NIHSS Score: 2 ss MDM: 15:29 Patient medically screened. la1 15:57 Physician consultation: Reji Rollins MD was called at 15:57, was contacted at 15:57, la1 regarding consult, would like further tests performed, MRI, will Call Dr. Rollins back after MRI. 15:57 ED course: Pt able to speak in full sentences now, states he feels like his speech is la1 not normal, has a persistent coughing fit. Pt oriented x4. 16:33 ED course: after discussing case with Dr. Rollins and Dr. Elmore decision to not give la1 TPA was given to to non-specific sx. Will obtain MRI of brain.. 18:11 Data reviewed: vital signs, nurses notes, lab test result(s), EKG, radiologic studies, la1 I have discussed the patient's presentation/case with the attending Emergency Department Physician; and as a result, I will discharge patient. Data interpreted: Pulse oximetry: on room air is 97 %. Interpretation: normal. Counseling: I had a detailed discussion with the patient and/or guardian regarding: the historical points, exam findings, and any diagnostic results supporting the discharge/admit diagnosis, the presence of at least one elevated blood pressure reading (>120/80) during this emergency department visit, lab results, radiology results, the need for outpatient follow up, a neurologist, the need to transfer to another facility, to return to the emergency department if symptoms worsen or persist or if there are any questions or concerns that arise at home. Physician consultation: Reji Rollins MD was called at 18:11, was contacted at 18:11, regarding consult, patient's condition, outpatient follow-up, in 2-3 days, would like medications started, lipitor. Special discussion: Based on the history and exam findings, there is no indication for further emergent testing or inpatient evaluation. I discussed with the patient/guardian the need to see the neurologist for further evaluation of the symptoms. 11/17 15:35 Order name: Troponin (emerg Dept Use Only); Complete Time: 17:11/17 15:35 Order name: Basic Metabolic Panel; Complete Time: 17:11/17 15:35 Order name: CBC with Diff; Complete Time: 17:11/17 15:35 Order name: Protime (+inr); Complete Time: 17:11/17 15:35 Order name: Ptt, Activated; Complete Time: 17:11/17 15:35 Order name: DD; Complete Time: 17:11/17 15:35 Order name: CT Stroke Brain w/o Contrast; Complete Time: 16:01 11/17 15:35 Order name: Stroke CXR 1 View; Complete Time: 17:10 11/17 15:35 Order name: EKG; Complete Time: 15:36 11/17 16:26 Order name: Glucose, Ancillary Testing; Complete Time: 16:31 EDMS 11/17 17:01 Order name: Brain Wo Cont; Complete Time: 17:33 EDMS 11/17 15:35 Order name: Accucheck; Complete Time: 16:11 11/17 15:35 Order name: Cardiac monitoring; Complete Time: 16:11 11/17 15:35 Order name: EKG - Nurse/Tech; Complete Time: 16:11 11/17 15:35 Order name: IV Saline Lock; Complete Time: 16:11 11/17 15:35 Order name: Labs collected and sent; Complete Time: 16:11 11/17 15:35 Order name: NPO; Complete Time: 16:11 11/17 15:35 Order name: O2 Per Protocol; Complete Time: 16:11 11/17 15:35 Order name: O2 Sat Monitoring; Complete Time: 16:11 la1 01/23 15:35 Order name: Stroke Swallow Screen; Complete Time: 16:11 la1 Administered Medications: 16:47 Drug: Tussionex Pennkinetic ER 5 ml Route: PO; iw 18:50 Follow up: Response: No adverse reaction; Marked relief of symptoms ss 16:48 Drug: Ativan 0.5 mg Route: IVP; Site: right antecubital; iw 18:55 Follow up: Response: No adverse reaction; Marked relief of symptoms; Anxiety decreased ss Point of Care Testing: Blood Glucose: 15:51 Blood Glucose: 90 mg/dL; ss Ranges: Critical Glucose Levels:Adult <50 mg/dl or >400 mg/dl <40 mg/dl or >180 mg/dl Disposition: 11/17/19 18:14 Discharged to Home. Impression: Cough, Anxiety disorder, unspecified, Speech disturbances, not elsewhere classified. - Condition is Stable. - Discharge Instructions: Panic Attacks, Cough, Adult. - Prescriptions for Lipitor 10 mg Oral Tablet - take 1 tablet by ORAL route once daily; 30 tablet. Guaifenesin AC 10- 100 mg/5 mL Oral Liquid - take 10 milliliter by ORAL route every 4 hours As needed; 240 milliliter. - Medication Reconciliation Form, Thank You Letter form. - Follow up: Reji Rollins MD; When: 2 - 3 days; Reason: Recheck today's complaints, Re-evaluation by your physician. Follow up: Emergency Department; When: As needed; Reason: Worsening of condition. - Problem is new. - Symptoms are resolved. NIH Stroke Scale - NIH Stroke Score Date: 11/17/2019 Time: 15:30 Total Score = 1 1a. Level of Consciousness (LOC) - 0(Alert) 1b. Level of Consciousness (LOC) (Year \T\ Age) - 0(Both) 1c. LOC Commands (Open \T\ Closes Eyes/Stamping Operator) - 0(Both) 2. Best Gaze (Lateral Gaze Paresis) - 0(Normal) 3. Visual Field Loss - 0(No visual loss) 4. Facial Palsy - 0(Normal) 5a. Left Arm: Motor (10-second hold) - 0(No drift) 5b. Right Arm: Motor (10-second hold) - 0(No drift) 6a. Left Leg: Motor (5-second hold - always test supine) - 0(No drift) 6b. Right Leg: Motor (5-second hold - always test supine) - 0(No drift) 7. Limb Ataxia (finger/nose \T\ heel/zuniga - test with eyes open) - 0(Absent) 8. Sensory Loss (pinprick arms/legs/face) - 0(Normal) 9. Best Language: Aphasia (description/naming/reading) - 0(No aphasia) 10. Dysarthria (speech clarity - read or repeat words) - 1(Mild to Moderate) 11. Extinction and Inattention (visual/tactile/auditory/spatial/personal) - 0(No abnormality) Initials: la1 NIH Stroke Scale - NIH Stroke Score Date: 11/17/2019 Time: 15:50 Total Score = 2 1a. Level of Consciousness (LOC) - 0(Alert) 1b. Level of Consciousness (LOC) (Year \T\ Age) - 0(Both) 1c. LOC Commands (Open \T\ Closes Eyes/Stamping Operator) - 0(Both) 2. Best Gaze (Lateral Gaze Paresis) - 0(Normal) 3. Visual Field Loss - 0(No visual loss) 4. Facial Palsy - 0(Normal) 5a. Left Arm: Motor (10-second hold) - 0(No drift) 5b. Right Arm: Motor (10-second hold) - 0(No drift) 6a. Left Leg: Motor (5-second hold - always test supine) - 0(No drift) 6b. Right Leg: Motor (5-second hold - always test supine) - 0(No drift) 7. Limb Ataxia (finger/nose \T\ heel/zuniga - test with eyes open) - 0(Absent) 8. Sensory Loss (pinprick arms/legs/face) - 0(Normal) 9. Best Language: Aphasia (description/naming/reading) - 1(Mild to moderate aphasia) 10. Dysarthria (speech clarity - read or repeat words) - 1(Mild to Moderate) 11. Extinction and Inattention (visual/tactile/auditory/spatial/personal) - 0(No abnormality) Initials: ss NIH Stroke Scale - NIH Stroke Score Date: 11/17/2019 Time: 15:50 Total Score = 2 1a. Level of Consciousness (LOC) - 0(Alert) 1b. Level of Consciousness (LOC) (Year \T\ Age) - 0(Both) 1c. LOC Commands (Open \T\ Closes Eyes/Stamping Operator) - 0(Both) 2. Best Gaze (Lateral Gaze Paresis) - 0(Normal) 3. Visual Field Loss - 0(No visual loss) 4. Facial Palsy - 0(Normal) 5a. Left Arm: Motor (10-second hold) - 0(No drift) 5b. Right Arm: Motor (10-second hold) - 0(No drift) 6a. Left Leg: Motor (5-second hold - always test supine) - 0(No drift) 6b. Right Leg: Motor (5-second hold - always test supine) - 0(No drift) 7. Limb Ataxia (finger/nose \T\ heel/zuniga - test with eyes open) - 0(Absent) 8. Sensory Loss (pinprick arms/legs/face) - 0(Normal) 9. Best Language: Aphasia (description/naming/reading) - 1(Mild to moderate aphasia) 10. Dysarthria (speech clarity - read or repeat words) - 1(Mild to Moderate) 11. Extinction and Inattention (visual/tactile/auditory/spatial/personal) - 0(No abnormality) Initials: ss Addendum: 11/19/2019 19:45 Co-signature as Attending Physician, Wily Elmore MD. rn Signatures: Dispatcher [employer] [facility] Arsalan Che PA PA jmm Williams, Irene, Wily Edwards RN, MD MD rn Smirch, Shelby, RN RN Rashid Gomez, RESEARCH AND EVALUATION ANALYST-C RESEARCH AND EVALUATION ANALYST-Cla1 Corrections: (The following items were deleted from the chart) 11/17 17:00 15:57 MR STROKE PROTOCOL+MRI.RAD.BRZ ordered. [facility] 18:58 18:14 11/17/2019 18:14 Discharged to Home. Impression: Cough; Anxiety disorder, ss unspecified; Speech disturbances, not elsewhere classified. Condition is Stable. Forms are Medication Reconciliation Form, Thank You Letter, Antibiotic Education, Prescription Opioid Use. Follow up: Reji Rollins; When: 2 - 3 days; Reason: Recheck today's complaints, Re-evaluation by your physician. Follow up: Emergency Department; When: As needed; Reason: Worsening of condition. Problem is new. Symptoms are resolved. la1
--- NOTE | 2019-11-17 18:15 | ER ---
Nurse's Notes [facility] [place] Name: Jeromy Brooks Age: 64 yrs Sex: Male : 1955 Arrival Date: 11/17/2019 Time: 15:28 Bed 14 Private MD: Diagnosis: Cough;Anxiety disorder, unspecified;Speech disturbances, not elsewhere classified Presentation: 11/17 15:28 Presenting complaint: EMS states: cough x 2 weeks and stuttering that began at 1330 ss this afternoon. EMS states, "He lives at home alone and I think he is anxious.". Transition of care: patient was not received from another setting of care. An acute neurological deficit is present. Pre-hospital glucose is not applicable to this patient. Onset of symptoms was November 17, 2019 at 13:30. Risk Assessment: Do you want to hurt yourself or someone else? Patient reports no desire to harm self or others. Initial Sepsis Screen: Does the patient meet any 2 criteria? No. Patient's initial sepsis screen is negative. Does the patient have a suspected source of infection? No. Patient's initial sepsis screen is negative. Care prior to arrival: None. 15:28 Method Of Arrival: EMS: [facility] ss 15:28 Acuity: SEUN 3 ss Stroke Activation: Symptom onset < 3 hours Physician: Stroke Attending; Name: ; Notified At: ; Arrived At: Physician: Chief Stroke Resident; Name: ; Notified At: ; Arrived At: Physician: Stroke Resident; Name: ; Notified At: ; Arrived At: Physician: ED Attending; Name: ; Notified At: ; Arrived At: Physician: ED Resident; Name: ; Notified At: ; Arrived At: Historical: - Allergies: 15:57 Albutein 5 %; ss 15:57 PENICILLINS; ss 15:57 Sulfa (Sulfonamide Antibiotics); ss - Home Meds: 15:57 Lisinopril [Active]; Robitussin DM [Active]; Prednisone Oral [Active]; Xarelto oral ss oral [Active]; carvedilol oral oral [Active]; - PMHx: 15:57 Anxiety; Arthritis; Asthma; CAD; Hypertension; Pulmonary embolism; ss - Immunization history:: Adult Immunizations unknown. - Ebola Screening: : Patient denies exposure to infectious person Patient denies travel to an Ebola-affected area in the 21 days before illness onset. - Social history:: Smoking status: Patient denies any tobacco usage or history of. Screenin:50 Abuse screen: Denies threats or abuse. Denies injuries from another. Nutritional ss screening: No deficits noted. Tuberculosis screening: Never had TB. VAN Screening: Arm Drift: Patient shows no arm weakness. Visual Disturbance: No visual disturbance noted. Aphasia: Expressive aphasia noted. Provider notified of +VAN scoring. Neglect: No neglect noted. Fall Risk None identified. 16:00 Patient has been NPO before screening. The patient is alert, able to follow commands. ss The patient does not exhibit slurred or garbled speech Intermittent slurring/ stuttering. At the time of this assessment. Pt was having speech clarity The patient is not exhibiting difficulty speaking. The patient is exhibiting difficulty understanding words. The patient is able to swallow own secretions with no drooling or need for suction. Patient tolerated one teaspoon of water. No drooling, immediate coughing, gurgling, or clearing of the throat was noted. The patient passed the bedside swallow screening. Oral medications may be given as ordered. Contact Physician for further diet orders. Assessment: 15:32 VAN Scoring: Arm Drift: Patients demonstrates NO arm weakness. Patient is VAN Negative. ss Visual Disturbance: No visual disturbance noted. Aphasia: Expressive aphasia noted. Provider notified of +VAN scoring. Neglect: No neglect noted. 15:32 Reassessment: Code stroke called. General: Appears uncomfortable, Behavior is ss cooperative, anxious, restless, Denies fever, feeling ill, fatigue, chills. General: Stuttering began at 1330 today after a coughing fit. Stuttering is intermittent when patient begins to have coughing spells. Neuro: Level of Consciousness is awake, alert, obeys commands, Oriented to person, place, time, situation, Bread Dumper are equal bilaterally Moves all extremities. Gait is steady, Speech is normal, Facial symmetry appears normal, Pupils are PERRLA, Intact Denies weakness blurred vision dizziness, paresthesias numbness headache photophobia diplopia. Respiratory: Reports dry, hacking cough that began 2 weeks ago. Airway is patent Trachea midline Respiratory effort is even, unlabored, Respiratory pattern is regular, symmetrical, Breath sounds are clear bilaterally. Denies shortness of breath pain with respiration, pain with cough, pain with movement, air hunger. 15:32 Pain: Complains of pain in right lower quadrant and left lower quadrant Pain currently ss is 4 out of 10 on a pain scale. Pain began upon arrival to ED. PT states, "I need to use the restroom." Is continuous. Cardiovascular: Capillary refill < 3 seconds is brisk in bilateral fingers Chest pain is denied. GI: Patient currently denies diarrhea, nausea, vomiting. : No signs and/or symptoms were reported regarding the genitourinary system. EENT: Nares are clear Oral mucosa is moist. Throat is clear. Derm: Skin is intact, is healthy with good turgor, Skin is pink, warm \\T\\ dry. normal. Musculoskeletal: Circulation, motion, and sensation intact. Range of motion: intact in all extremities, Swelling absent. 16:00 Patient has been NPO before screening. The patient is alert, and able to follow commands. The patient does not exhibit slurred or garbled speech. The patient is not exhibiting difficulty speaking. At the time of this screening, pt speech was clear. The patient is exhibiting difficulty understanding words. The patient is able to swallow own secretions with no drooling or need for suction. Patient tolerated one teaspoon of water. No drooling, immediate coughing, gurgling, or clearing of the throat was noted. The patient passed the bedside swallow screening. Oral medications may be given as ordered. Contact Physician for further diet orders. Provider notified of bedside swallow screening results: Rashid TIMMONS-Prem. T-PA (Activase) Screening: Indications: Definite evidence of stroke, ischemic, embolic, or hypertensive: Yes. Treatment will start within 4.5 hours onset of symptoms: Yes. 16:05 Reassessment: Pt had small BM VIA bedside commode, Voided x1. Reports that abdominal ss pain has gone since having the BM. PT is not stuttering at this time. 17:00 Reassessment: Patient appears in no apparent distress at this time. Patient and/or ss family updated on plan of care and expected duration. Pain level reassessed. Patient is alert, oriented x 3, equal unlabored respirations, skin warm/dry/pink. NIHSS 0 Patient states feeling better. 18:30 Reassessment: Patient appears in no apparent distress at this time. Patient and/or ss family updated on plan of care and expected duration. Pain level reassessed. Patient is alert, oriented x 3, equal unlabored respirations, skin warm/dry/pink. Patient denies pain at this time. Patient states feeling better. Patient states symptoms have improved. Vital Signs: 15:57 BP 132 / 91; Pulse 86; Resp 20; Pulse Ox 97% on R/A; ss 16:00 Temp 98.2(TE); ss 18:00 BP 134 / 82; Pulse 84; Resp 18; Pulse Ox 100% on R/A; Pain 0/10; ss NIH Stroke Scale Scores: 15:30 NIHSS Score: 1 la1 15:50 NIHSS Score: 2 ss 15:50 NIHSS Score: 2 ss ED Course: 15:28 Patient arrived in ED. ss 15:29 [facility]C [facility] la1 15:29 Wily Elmore MD is Attending Physician. la1 15:41 CT Stroke Brain w/o Contrast In Process Unspecified. EDMS 15:50 Patient has correct armband on for positive identification. Bed in low position. Call ss light in reach. Side rails up X 1. monitoring and evaluation advisor on. Pulse ox on. NIBP on. 15:51 Arm band placed on right wrist. ss 15:54 Triage completed. ss 16:03 Stroke CXR 1 View In Process Unspecified. EDMS 16:10 Teri Oh, BLAYNE is Primary Nurse. ss 17:01 Brain Wo Cont In Process Unspecified. EDMS 18:13 Reji Rollins MD is Referral Physician. la1 18:56 No provider procedures requiring assistance completed. IV discontinued, intact, ss bleeding controlled, No redness/swelling at site. Pressure dressing applied. Administered Medications: 16:47 Drug: Tussionex Pennkinetic ER 5 ml Route: PO; iw 18:50 Follow up: Response: No adverse reaction; Marked relief of symptoms ss 16:48 Drug: Ativan 0.5 mg Route: IVP; Site: right antecubital; iw 18:55 Follow up: Response: No adverse reaction; Marked relief of symptoms; Anxiety decreased ss Point of Care Testing: Blood Glucose: 15:51 Blood Glucose: 90 mg/dL; ss Ranges: Outcome: 18:14 Discharge ordered by . la1 18:56 Discharged to home ambulatory. ss 18:56 Condition: good 18:56 Discharge instructions given to patient, friend, Instructed on discharge instructions, follow up and referral plans. medication usage, Demonstrated understanding of instructions, follow-up care, medications, Prescriptions given X 2. 18:58 Patient left the ED. NIH Stroke Scale - NIH Stroke Score Date: 11/17/2019 Time: 15:30 Total Score = 1 1a. Level of Consciousness (LOC) - 0(Alert) 1b. Level of Consciousness (LOC) (Year \\T\\ Age) - 0(Both) 1c. LOC Commands (Open \\T\\ Closes Eyes/Sand Technologist) - 0(Both) 2. Best Gaze (Lateral Gaze Paresis) - 0(Normal) 3. Visual Field Loss - 0(No visual loss) 4. Facial Palsy - 0(Normal) 5a. Left Arm: Motor (10-second hold) - 0(No drift) 5b. Right Arm: Motor (10-second hold) - 0(No drift) 6a. Left Leg: Motor (5-second hold - always test supine) - 0(No drift) 6b. Right Leg: Motor (5-second hold - always test supine) - 0(No drift) 7. Limb Ataxia (finger/nose \\T\\ heel/zuniga - test with eyes open) - 0(Absent) 8. Sensory Loss (pinprick arms/legs/face) - 0(Normal) 9. Best Language: Aphasia (description/naming/reading) - 0(No aphasia) 10. Dysarthria (speech clarity - read or repeat words) - 1(Mild to Moderate) 11. Extinction and Inattention (visual/tactile/auditory/spatial/personal) - 0(No abnormality) Initials: la1 NIH Stroke Scale - NIH Stroke Score Date: 11/17/2019 Time: 15:50 Total Score = 2 1a. Level of Consciousness (LOC) - 0(Alert) 1b. Level of Consciousness (LOC) (Year \\T\\ Age) - 0(Both) 1c. LOC Commands (Open \\T\\ Closes Eyes/Sand Technologist) - 0(Both) 2. Best Gaze (Lateral Gaze Paresis) - 0(Normal) 3. Visual Field Loss - 0(No visual loss) 4. Facial Palsy - 0(Normal) 5a. Left Arm: Motor (10-second hold) - 0(No drift) 5b. Right Arm: Motor (10-second hold) - 0(No drift) 6a. Left Leg: Motor (5-second hold - always test supine) - 0(No drift) 6b. Right Leg: Motor (5-second hold - always test supine) - 0(No drift) 7. Limb Ataxia (finger/nose \\T\\ heel/zuniga - test with eyes open) - 0(Absent) 8. Sensory Loss (pinprick arms/legs/face) - 0(Normal) 9. Best Language: Aphasia (description/naming/reading) - 1(Mild to moderate aphasia) 10. Dysarthria (speech clarity - read or repeat words) - 1(Mild to Moderate) 11. Extinction and Inattention (visual/tactile/auditory/spatial/personal) - 0(No abnormality) Initials: NIH Stroke Scale - NIH Stroke Score Date: 11/17/2019 Time: 15:50 Total Score = 2 1a. Level of Consciousness (LOC) - 0(Alert) 1b. Level of Consciousness (LOC) (Year \\T\\ Age) - 0(Both) 1c. LOC Commands (Open \\T\\ Closes Eyes/Sand Technologist) - 0(Both) 2. Best Gaze (Lateral Gaze Paresis) - 0(Normal) 3. Visual Field Loss - 0(No visual loss) 4. Facial Palsy - 0(Normal) 5a. Left Arm: Motor (10-second hold) - 0(No drift) 5b. Right Arm: Motor (10-second hold) - 0(No drift) 6a. Left Leg: Motor (5-second hold - always test supine) - 0(No drift) 6b. Right Leg: Motor (5-second hold - always test supine) - 0(No drift) 7. Limb Ataxia (finger/nose \\T\\ heel/zuniga - test with eyes open) - 0(Absent) 8. Sensory Loss (pinprick arms/legs/face) - 0(Normal) 9. Best Language: Aphasia (description/naming/reading) - 1(Mild to moderate aphasia) 10. Dysarthria (speech clarity - read or repeat words) - 1(Mild to Moderate) 11. Extinction and Inattention (visual/tactile/auditory/spatial/personal) - 0(No abnormality) Initials: Signatures: Dispatcher [employer] EDKavitha Garcia RN RN Teri Oh RN RN ss Attema, Lee, WORKERS' COMPENSATION CLAIMS EXAMINER-C WORKERS' COMPENSATION CLAIMS EXAMINER-Cla1 Corrections: (The following items were deleted from the chart) 20:46 15:32 Respiratory: Reports dry, hacking cough that began 2 weeks ago. Airway is ss patent Trachea midline Respiratory effort is even, unlabored, Respiratory pattern is regular, symmetrical, Breath sounds are clear bilaterally. ss
[2019-11-17 19:03] VITALS: BP 132/91; O2SAT 97
--- NOTE | 2019-11-18 08:36 | EKG ---
Test Date: 2019-11-17 Test Time: 15:52:39 Data Warehouse Analyst: GRISELDA MEASUREMENT RESULTS: Intervals: Rate: 103 WV: 130 QRSD: 84 QT: 344 QTc: 450 [place]: P: 75 WV: 130 QRS: 46 T: 72 INTERPRETIVE STATEMENTS: Sinus tachycardia with occasional premature ventricular complexes Low voltage QRS Borderline ECG Compared to ECG 05/25/2018 12:57:56 Ventricular premature complex(es) now present Low QRS voltage now present Sinus rhythm no longer present Electronically Signed On 11-18-19 08:34:55 TEST WORKER by Luke Kinney
== END 2019-11-17 18:58 | disposition home or self-care (01) ==
LOC: ER 15:26
DX: F41.9 Anxiety disorder, unspecified (principal); R05 Cough; R47.9 Unspecified speech disturbances; I10 Essential (primary) hypertension; I26.99 Other pulmonary embolism without acute cor pulmonale; Z79.01 Long term (current) use of anticoagulants; Z88.0 Allergy status to penicillin; Z88.2 Allergy status to sulfonamides; Z88.8 Allergy status to other drugs, medicaments and biological substances
CPT/HCPCS: 36415; 70450; 70551; 71045; 80048; 82947; 84484; 85025; 85379; 85610; 85730; 93005; 96374; 99284